=== PATIENT | female | born 1995 | race Caucasian/White ===

== ENCOUNTER 2021-10-24 10:34 | Outpatient (CLI) | payer OTHER, SELFPAY ==
[2021-10-24 10:57] LABS: Hematocrit 33.3 % (37.0-47.0); Hemoglobin 11.4 g/dL (12.0-15.0); Mean Corpuscular HGB Conc 34.2 g/dl (32-36); Mean Corpuscular Hemoglobin 30.7 pg (26-34); Mean Corpuscular Volume 89.8 fl (80-100); Platelet Count Result 223 k/mm3 (150-375); Red Blood Count 3.71 M/mm3 (4.2-5.4); Red Cell Distribution Width 13.1 % (11.5-14.5); White Blood Count 8.2 K/mm3 (4.5-10.0)
[2021-10-25 07:20] LABS: Rapid Plasma Reagin Non-Reactive (NonReactive)
== END 2021-10-24 10:35 | disposition home or self-care (01) ==
LOC: ANHLAB 10:36
PROVIDERS: Visit Provider Obstetrics & Gynecology
DX: Z34.93 Encounter for supervision of normal pregnancy, unspecified, third trimester (principal); Z3A.00 Weeks of gestation of pregnancy not specified
CPT/HCPCS: 36415; 85027; 86592; 86850; 86900; 86901

== ENCOUNTER 2021-10-25 08:28 | Inpatient (IN) | payer OTHER, SELFPAY ==
--- NOTE | 2021-10-10 13:09 | PC.NURSE ---
Verified with OR schedule and patient--C/S with tubla ligation on 10/25/21 at 1200 Patient given requisition for lab draw on 10/24/21
--- NOTE | 2021-10-22 18:02 | PM.IMHP ---
H&P: HPI History of Present Illness Date/Time: 10/22/21 18:02 Chief Complaint: Term with previous section desires permanent sterilization Narrative: A 25-year-old 3 para 2 whose last menstrual period is 01/17/2021, EDC is 10/28/2021, confirmed by 6 week ultrasound who presents at 39 weeks gestation for repeat section bilateral tubal ligation. She understands tubal ligation to be permanent and irreversible procedure with the failure rate of 05/999. has been uncomplicated short of having had chlamydia positive with negative test to cure. She is negative for group B strep PMFSH Family History Family History Grandparent Heart attack Alzheimer disease Diabetes mellitus Social History Social History Substance use: never Spiritual care concerns: No Meds Home Medications and Allergies Allergies Allergy/AdvReac Type Severity Reaction Status Date / Time No Known Allergies Allergy Verified 10/10/21 12:49 Exam : Speculum Exam - Cervix: normal appearance of the cervix Bimanual exam- vagina & uterus: enlarged and soft Assessment and Plan Assessment and plan (1) Term : Code(s): Z34.90 - Encounter for supervision of normal , unspecified, unspecified trimester Status: Acute (2) Previous section: Code(s): Z98.891 - History of uterine scar from previous surgery Status: Acute (3) Sterilization: Code(s): Z30.2 - Encounter for sterilization Status: Acute Plan Repeat section and bilateral tubal ligation
--- NOTE | 2021-10-24 12:51 | WPDANESEPPF ---
Anes - Initial Pre Proc Eval Procedure: Operation Date: 10/25/21 10:30 Proposed Procedures p Repeat Section with Tubal Ligation - Todd Levi MD Date/Time: 10/24/21 12:51 Surgeon: Todd eLvi MD Pre Op Diagnosis: c/s Patient Data Age: 26 Gender: F Height: Weight: Allergies Allergy/AdvReac Type Severity Reaction Status Date / Time No Known Allergies Allergy Verified 10/10/21 12:49 Home Medications Medication Instructions Recorded Confirmed Type hydrocodone 5 mg-acetaminophen 325 1 tablet PO Q4H PRN pain #30 tabs 10/25/21 Rx mg tablet Patient hx anesthesia problems: none Family hx anesthesia problems: none Results Review: All pre-operative results and documents have been reviewed as part of the pre-operative evaluation. [facility] Family History Family History Grandparent Heart attack Alzheimer disease Diabetes mellitus Social History Social History Smoking status: Never smoker Second hand tobacco smoke exposure: No Substance use: never Spiritual care concerns: No Anes - Eval Final PreProcedure Day of Procedure 10/24/21 12:51 Patient weight: overweight Heart: regular rate and rhythm Lungs: clear to auscultation and normal air movement Airway: Mallampati scale class II Neurological: alert and oriented Last oral intake: >/= 8 hours ASA classification: II Emergent: no Anesthetic plan: proceed Anesthesia type and monitoring: regional spinal Results Review: All pre-operative results and documents have been reviewed as part of the pre-operative evaluation. Informed Consent: The patient's anesthetic plan and its attendant risks and benefits were discussed with the patient/family/POA. Questions were solicited and answers provided to the satisfaction of the patient/family/POA.
[2021-10-25] VITALS (66 sets, daily range): BP systolic 78–141; BP diastolic 40–85; PULSE 45–75; RESP 12–20; TEMP 36.3–37.6; O2SAT 94–100; BMI 31.2
--- NOTE | 2021-10-25 07:03 | WPDHPUPDATE1 ---
History and Physical Update Update Date/Time: 10/25/21 07:03 History and Physical has been reviewed, including an updated exam of the patient. There are NO changes in the patient's condition. Risks, benefits, and alternatives have been discussed and questions answered. Patient agrees to proceed with procedure.
[2021-10-25] MEDS: LACTATED RINGERS 1,000 ML 999 ML IV CONT (09:10)
--- NOTE | 2021-10-25 09:12 | LDADM ---
This patient, Ruslan Musa, was admitted to Labor/Delivery/Recovery 119 on 10/25/21 at 08:28. Plans for labor, pain management and were discussed with patient. Patient/family oriented to hospital policies and general routines including ID bracelet, bed and alarms, visiting hours, pain management, procedures, bathroom and other care routines, personal items, smoking policy, room service/diet and guest tray routines, infant security routines, and visiting hours. Patient/Family are encouraged to report perceived risks to care and to ask questions if they do not understand what they are told or what they should do. See OBIX for further documentation.
[2021-10-25] MEDS: LACTATED RINGERS 1,000 ML 125 ML IV CONT (10:11)
[2021-10-25] MEDS: ceFAZolin 2 GM/D5W 50 ML 2 GM/50 ML BAG IVPB (10:50)
[2021-10-25] MEDS: KETOROLAC 30 MG/ML VIAL (*BKC) IV PUSH (11:29)
--- NOTE | 2021-10-25 11:39 | W.PM.PROC2 ---
Procedure Note - Detailed Date of Procedure 10/25/21 Pre-op Diagnosis c/s Desires permanent sterilization Post-op Diagnosis Same Procedure Performed repeat low-transverse section bilateral tubal ligation via modified Zoltan Surgeon Todd Levi MD Anesthesia Spinal Indications is a 18-year-old female with previous section who desires permanent sterilization to undergo a repeat tubal ligation Findings normal-appearing uterus ovaries and tubes. Male infant 8lb 7oz with Apgars of 9 and 9 1 and 5minutes respectively Description of Procedure patient was prepped draped in normal sterile fashion placed in the dorsal lithotomy position. Under excellent spinal anesthetic the abdomen is entered a fast fashion progressive layers of fascia. Fascia incised midline and upward outward fashion bilaterally. Underlying muscles sharply dissected. Parietal perineum awakened clamped and a sharp 2nd. This was carried superiorly and inferiorly dome bladder. Bladder blade was placed. Bladder blade returned. A low-transverse incision made the head delivered the AMADO position. Anterior posterior shoulder delivered spontaneously. Cord clamped x2 and cut. Infant passed off the table given Apgars of 9 [id number]. Cord blood was drawn. Placenta delivered intact manually. Uterus delivered on the abdomen wrapped in a moist towel. After assuring no membranes or debris remained in the uterus, the uterus was closed with continuous running locking 0 Vicryl from lateral edge to lateral edge. This was followed by 2nd imbricating running locking 0 Vicryl from lateral edge to lateral edge. Hemostasis was assured. Attention was turned to the tubal ligation portion. The right fallopian tube was grasped at its midportion. A good knuckle of tube was free tied with 0 chromic. The peritoneum between was pierced and the distal and proximal legs were tied with 0 chromic. The this portion cut and passed off the table labeled portion of right fallopian tube. In like fashion left fallopian tube was grasped with midportion. A good knuckle of tube was free tied with 0 chromic the peritoneum between was cut and distal and proximal legs were free tied with 0 chromic the portion between cut and passed off the table labeled portion of left fallopian tube. The uterine incision inspected 1 last time after assuring that these tubal ligation ligations were dry. Uterus returned to the abdomen. The debris remained that remained in the uterus uterine cavity was removed as the pelvic cavity and laps removed and accounted for. The fascia closed with continuous running 0 Vicryl from lateral edge to the midline bilaterally. Irrigation subcutaneous the skin closed with 4. QBL was 385. All sponge, needle, instrument counts were correct. Were no complications noted Estimated Blood Loss 385 Drains No Packing No Pathology Yes ( bilateral fallopian tube segments) Complications No immediate complications Condition Stable Disposition Floor
[2021-10-25] MEDS: OXYTOCIN 30 UNITS/NS 500 ML 30 UNITS/500 ML BAG 125 UNITS IV CONT (12:08)
[2021-10-25] MEDS: MORPHINE SULFATE INJ (*CRX) 10 MG/ML AMP 2 MG IV PUSH (13:29)
--- NOTE | 2021-10-25 14:24 | PC.NURSE ---
Patient transferred to post room #277 via stretcher. Support person present. Oriented to unit, room, information board, rooming in, admission packet and security measures. Patient verbalizes understanding.
[2021-10-25] MEDS: DEXTROSE 5%/0.45% SOD CHL 1,000 ML 125 ML IV CONT (16:01)
[2021-10-25] MEDS: IBUPROFEN 600 MG TABLET PO (22:49)
[2021-10-25] MEDS: SIMETHICONE 80 MG TAB.CHEW PO (22:50)
[2021-10-25] MEDS: HYDROcodone/acetaminophen (*CRX) 5-325 MG TABLET 1 TAB PO (22:50)
[2021-10-26 04:30] VITALS: BP 112/59; PULSE 62; RESP 18; TEMP 36.9; O2SAT 100
--- NOTE | 2021-10-26 05:15 | PM.DS ---
DS: Admitting Diagnosis Discharge Date 10/27/21 Admitting Diagnosis Term . Previous section. Desires permanent sterilization DS: Discharge Diagnosis Discharge Diagnosis (1) Sterilization: Code(s): Z30.2 - Encounter for sterilization Status: Acute (2) Previous section: Code(s): Z98.891 - History of uterine scar from previous surgery Status: Acute (3) Term : Code(s): Z34.90 - Encounter for supervision of normal , unspecified, unspecified trimester Status: Acute DS: Summary Hospital Course Reason for hospitalization: patient was admitted for repeat section and bilateral tubal ligation Hospital Course: patient underwent repeat section and bilateral tubal ligation. Her hospital course was unremarkable. She remained afebrile. She was up, ambulating, voiding without difficulty, eating regular diet, breast-feeding, generally without complaints. Time Spent with Patient Time attestation: Total time spent providing and/or coordinating discharge services: Exam Const: General: cooperative, healthy appearing and comfortable Nutritional Appearance: average body habitus Resp: Effort & Inspection: normal respiratory effort Cardio: Heart sounds: S1 normal heart sound present and S2 normal heart sound present GI: Inspection: normal to inspection and incision ( Clean dry and intact) DS: Data Data Completed and Pending Pending studies at discharge: Pending at discharge 10/25/21 11:23 Surgical [PTH] Routine Discharge Plan Discharge Attending physician on discharge: Todd Elizondo Discharging Clinician: Todd Elizondo Patient Disposition: Home, Self-Care Activity: may shower, no straining and pelvic rest Diet: heart healthy Wound Care Instructions: follow printed instructions Discharge Instructions: Education: Mom and Baby Guide Given to: Mother Follow-Up: Call your delivering provider's office for an appointment to be seen in: 6 Weeks Mom and baby should come to the [facility] for the follow-up appointment. Appointment Date/Time: October 29, 2021 at 10:00 am What to expect at your follow-up visit: Blood Pressure Check Physical Assessment Call [phone] if you are unable to keep your appointment time. BREAST CARE: * Wear a snug supportive bra. * For engorgement discomfort: Breast Feeding: * Apply warm moist washcloths * Express milk as needed to relieve engorgement * Wear loose clothing * For sore nipples: * Identify correct latch-on * Apply warm moist washcloths before and after nursing * Air dry nipples after nursing * May apply Lansinoh cream to nipples ABDOMINAL INCISION: (if applicable) * Allow incision to air dry * Do NOT use lotions for powders on your incision * When showering, allow soap and water to run over the incision, but do not wash incision ACTIVITY: * Rest as much as possible. * Do not exercise or lift anything heavier than your baby (such as laundry or other children.) * Avoid stairs or driving as much as possible. * Do not put anything into the vagina. No douching, tampons, or sexual activity until seen by physician. NOTIFY PHYSICIAN IF YOU HAVE ANY QUESTIONS OR IF ANY OF THE FOLLOWING SYMPTOMS OCCUR: * If your episiotomy or incision becomes red, swollen, or more painful than what you have experienced in the hospital. * If your vaginal bleeding becomes foul smelling. * If your vaginal bleeding becomes more heavy than a period or if your bleeding changes from pink to bright red. However, you may pass an occasional walnut- sized clot once or twice for the first week . * If you experience a sharp, shooting pain in your calves. * If you discover a hard, reddened area on your breast or if you experience flu-like symptoms. DIET: * Eat regular, well-balance
[2021-10-26 06:12] LABS: Basophils Percent Auto 0.2 % (0.2-1.2); Eosinophils Absolute Auto 0.1 K/mm3 (0-0.3); Eosinophils Percent Auto 0.4 % (0-4.4); Hematocrit 29.2 % (37.0-47.0); Hemoglobin 9.8 g/dL (12.0-15.0); Immature Granulocyte Absolute 0.06 K/mm3 (0.00-0.031); Immature Granulocyte Percent A 0.5 % (0-0.5); Lymphocytes Absolute Auto 1.72 K/mm3 (0.9-3.2); Lymphocytes Percent Auto 14.6 % (18.3-44.2); Mean Corpuscular HGB Conc 33.6 g/dl (32-36); Mean Corpuscular Hemoglobin 30.6 pg (26-34); Mean Corpuscular Volume 91.3 fl (80-100); Mean Platelet Volume 11.6 fl (7.4-10.4); Monocytes Absolute Auto 1.1 K/mm3 (0.1-0.6); Monocytes Percent Auto 9.3 % (2.6-8.5); Neutrophils Absolute Auto 8.8 K/mm3 (1.3-6.7); Platelet Count Result 190 k/mm3 (150-375); Red Cell Distribution Width 13.2 % (11.5-14.5); White Blood Count 11.8 K/mm3 (4.5-10.0)
[2021-10-26] MEDS: POLYSACCHARIDE IRON COMPLEX 150 MG CAPSULE PO (07:15)
[2021-10-26] MEDS: IBUPROFEN 600 MG TABLET PO ×3 (07:15→22:44)
[2021-10-26] MEDS: DOCUSATE SODIUM 100 MG CAPSULE PO ×2 (07:15→15:57)
[2021-10-26] MEDS: MULTIVIT/MIN/PREN/FOL AC/IRON TABLET 1 TAB PO (07:15)
[2021-10-26] MEDS: HYDROcodone/acetaminophen (*CRX) 5-325 MG TABLET 1 TAB PO ×2 (07:16→12:53)
[2021-10-26 07:35] VITALS: BP 108/60; PULSE 56; RESP 18; TEMP 36.2; O2SAT 100
--- NOTE | 2021-10-26 08:01 | WPDANLDPN2 ---
Anes-Prog Note L&D Date/Time: 10/26/21 08:01 Comfortable throughout: section Neuraxial method: spinal Epidural/Spinal procedure site: clean & non-tender Neuro status: Neuro function grossly intact. Cardiovascular status: normal Respiratory status: normal Airway patency: baseline Mental status: baseline Post-Op hydration status: normal Vital Signs: Last Vital Signs Temp 36.9 C 10/26/21 04:30 Pulse 62 10/26/21 04:30 Resp 18 10/26/21 04:30 BP 112/59 L 10/26/21 04:30 Pulse Ox 100 10/26/21 04:30 O2 Del Method Room Air 10/26/21 04:30 Pain score (VAS): 10 I/O: Intake & Output 10/25/21 10/26/21 10/26/21 23:59 07:59 15:59 Intake Total 900 600 Output Total 300 2550 Balance 600 -1950 Post-procedural complaints: none Patient feedback: Patient satisfied with anesthetic care.
--- NOTE | 2021-10-26 08:01 | WPDANLDNPN2 ---
Anes-Prog Note L&D-Neuraxial Date/Time: 10/26/21 08:01 Neuraxial medications: intrathecal PF morphine Opiod-related complaints: none Patient feedback: Patient satisfied with post-operative pain management.
--- NOTE | 2021-10-26 09:12 | PC.NURSE ---
0823-Introductions were made, then consulted with patient to assess needs related to . Father led the conversation with this being mother's 3rd baby and is going well. Mother is in the shower. Resources provided for inpatient and outpatient services using a resource guide and mom/baby guide. Father voiced understanding of information and will call if there is a request for assistance.
[2021-10-26] MEDS: HYDROcodone/acetaminophen (*CRX) 10-325 MG TABLET 1 TAB PO ×3 (16:00→22:45)
[2021-10-26 19:43] VITALS: BP 140/84; PULSE 76; RESP 18; TEMP 37; O2SAT 100
[2021-10-26] MEDS: SIMETHICONE 80 MG TAB.CHEW PO (22:45)
[2021-10-27] MEDS: IBUPROFEN 600 MG TABLET PO ×2 (04:36→11:15)
[2021-10-27] MEDS: HYDROcodone/acetaminophen (*CRX) 10-325 MG TABLET 1 TAB PO ×2 (04:36→07:40)
[2021-10-27] MEDS: SIMETHICONE 80 MG TAB.CHEW PO ×2 (04:36→07:40)
[2021-10-27 08:20] VITALS: BP 108/65; PULSE 70; RESP 18; TEMP 36.6; O2SAT 100
[2021-10-27] MEDS: POLYSACCHARIDE IRON COMPLEX 150 MG CAPSULE PO (09:25)
[2021-10-27] MEDS: DOCUSATE SODIUM 100 MG CAPSULE PO (09:25)
[2021-10-27] MEDS: MULTIVIT/MIN/PREN/FOL AC/IRON TABLET 1 TAB PO (09:25)
--- NOTE | 2021-10-27 09:31 | PM.OBPNVD ---
OB - PN: Subj Subjective Date/time seen: 10/27/21 09:31 Narrative: Pain OK. Tolerating diet. Would like to go home. OB - PN: Obj Data Labs CBC & Chem 7: 10/26/21 04:29 OB - PN A/P Assessment and Plan (1) Sterilization: Code(s): Z30.2 - Encounter for sterilization Status: Acute (2) Previous section: Code(s): Z98.891 - History of uterine scar from previous surgery Status: Acute (3) Term : Code(s): Z34.90 - Encounter for supervision of normal , unspecified, unspecified trimester Status: Acute Plan Comments: A: POD#2, doing well. P: Home to f/u 4 weeks. Exam Narrative: AVSS ABD soft, nontender, fundus firm. Incision c/d/i. EXT nontender
[2021-10-27] MEDS: HYDROcodone/acetaminophen (*CRX) 5-325 MG TABLET 1 TAB PO (11:16)
[2021-10-29 10:28] VITALS: BP 124/76; PULSE 64; RESP 20; TEMP 36.8; O2SAT 99
== END 2021-10-27 12:36 | disposition home or self-care (01) | DRG 785 ==
LOC: ANHOB2 10-27 10:35 → ANHLDR 10-30 13:21
PROVIDERS: Admitting Provider Obstetrics & Gynecology; Visit Provider Obstetrics & Gynecology
PROC: 10D00Z1 Extraction of Products of Conception, Low, Open Approach (ICD-10-PCS; CPT 59514; principal; 2021-10-25 10:30)
DX: O34.219 Maternal care for unspecified type scar from previous cesarean delivery (principal); Z30.2 Encounter for sterilization; O69.81X0 Labor and delivery complicated by cord around neck, without compression, not applicable or unspecified; Z3A.39 39 weeks gestation of pregnancy; Z37.0 Single live birth
CPT/HCPCS: 36415; 85025; 85027; 86592; 86850; 86900; 86901; 88302; A9270; J0131; J0690; J1200; J1885; J2270; J2274; J2405; J2590; J3010; J7120